=== PATIENT | female | born 1975 | race Two or more races ===

== ENCOUNTER 2018-10-18 13:38 | Emergency (ER) | payer MEDICAID ==
[~2018-10-18] VITALS: Ht 160 cm; Wt 106.2 kg
[2018-10-18 13:48] VITALS: BP 120/80
[2018-10-18] MEDS ORDERED: HYDROcodone/APAP 5/325 TABLET ONE (14:06)
--- NOTE | 2018-10-18 14:08 | NUR ---
Pt medicated as per emar for 02/25 R sd facial pain from tooth x 3 days. Confirmed she is not driving self.
[2018-10-18] MEDS ORDERED: HYDROcodone/APAP 5/325 TABLET PO ONE (14:30)
== END 2018-10-18 15:01 | disposition home or self-care (01) ==
LOC: ED 14:40
DX: K08.89 Other specified disorders of teeth and supporting structures (principal); I10 Essential (primary) hypertension; E11.9 Type 2 diabetes mellitus without complications
CPT/HCPCS: 99283